=== PATIENT | male | born 1995 | race Caucasian/White ===

== ENCOUNTER 2023-03-04 09:35 | Inpatient (IN) | payer OTHER ==
[2023-03-04 10:21] VITALS: BMI 27.8
[2023-03-04] MEDS ORDERED: IBUPROFEN 600 MG TABLET (FP) PO PRN (10:48)
[2023-03-04] MEDS ORDERED: guaiFENesin 600 MG TABLET.ER (FP) PO PRN (10:48)
[2023-03-04] MEDS ORDERED: NALOXONE HCL 0.4 MG/ML VIAL IM PRN (10:48)
[2023-03-04] MEDS ORDERED: IBUPROFEN 400 MG TABLET (FP) PO PRN (10:48)
[2023-03-04] MEDS ORDERED: BISMUTH SUBSALICYLATE 262 MG/15 ML BTL PO PRN (10:48)
[2023-03-04] MEDS ORDERED: BENZONATATE 200 MG CAPSULE PO PRN (10:48)
[2023-03-04] MEDS ORDERED: ONDANSETRON *ODT* 4 MG TABLET SL PRN (10:48)
[2023-03-04] MEDS ORDERED: ACETAMINOPHEN 325 MG TABLET (FP) PO PRN (10:48)
[2023-03-04] MEDS ORDERED: POLYETHYLENE GLYCOL (HEALTHYLAX) 3350 17 GM PACKET PO PRN (10:48)
[2023-03-04] MEDS ORDERED: LOPERAMIDE HCL 2 MG CAPSULE PO PRN (10:48)
[2023-03-04] MEDS ORDERED: MAG HYDROX/AL HYDROX/SIMETH 30 ML UNIT-DOSE CUP PO PRN (10:48)
[2023-03-04] MEDS ORDERED: BENZOCAINE/MENTHOL (CHLORASEPTIC ) LOZENGE MM PRN (10:48)
[2023-03-04] MEDS ORDERED: NALOXONE HCL (KLOXXADO) 8 MG SPRAY NS PRN (10:48)
[2023-03-04] MEDS ORDERED: MAGNESIUM HYDROX 2400MG/30ML ORAL SUSPENSION 30 ML CUP PO PRN (10:48)
[2023-03-04] MEDS ORDERED: methaDONE HCL 10 MG TABLET (FOR DETOX USE ONLY) PO ONE (10:52)
[2023-03-04] MEDS ORDERED: methaDONE HCL 10 MG TABLET (FOR DETOX USE ONLY) ONE (11:20)
[2023-03-04] MEDS: cloNIDine HCL 0.1 MG TABLET PO PRN ×2 (12:07→22:19)
[2023-03-04] MEDS: hydrOXYzine PAMOATE 25 MG CAPSULE (FP) PO PRN (12:07)
[2023-03-04] MEDS ORDERED: diazePAM 5 MG TABLET PO PRN (14:07)
[2023-03-04] MEDS: SERTRALINE HCL 50 MG TABLET (FP) PO SCH (14:38)
[2023-03-04 16:29] LABS: HIV INTERPRETATION NEGATIVE (NEGATIVE)
[2023-03-04] MEDS: THIAMINE HCL 100 MG TABLET (FP) PO SCH (22:18)
[2023-03-04] MEDS: MELATONIN 5 MG TABLETS PO SCH (22:18)
[2023-03-05 08:27] LABS: POTASSIUM 3.5 mmol/L (3.5-5.1)
[2023-03-05 08:29] LABS: CALCIUM 10.2 mg/dL (8.5-10.1)
[2023-03-05 08:30] LABS: ALBUMIN 4.1 g/dl (3.4-5.0); BLOOD UREA NITROGEN 11.2 mg/dL (7-18); HEMATOCRIT 43.3 % (35.4-49); HEMOGLOBIN 14.5 GM/dL (11.7-16.9); MCH 30.6 pg (25.7-33.7); MCHC 33.5 g/dl (32.0-35.9); MEAN CELL VOLUME 91.6 fl (80-96); MEAN PLT VOLUME 8.6 fl (7.5-11.1); PLATELET COUNT 251 10^3/uL (134-434); RBC 4.73 M/mm3 (4.00-5.60); RDW 13.2 % (11.9-15.9); WHITE BLOOD COUNT 5.9 K/mm3 (4.0-10.0)
[2023-03-05 08:33] LABS: CREATININE 0.8 mg/dL (0.55-1.3)
[2023-03-05 08:34] LABS: BILIRUBIN,TOTAL 0.9 mg/dL (0.2-1); TOT PROT 7.7 g/dl (6.4-8.2)
[2023-03-05] MEDS: PRENATAL VITAMINS W/ FOLIC ACID TABLET (FP) PO SCH (10:26)
[2023-03-05] MEDS: SERTRALINE HCL 50 MG TABLET (FP) PO SCH (10:26)
[2023-03-05] MEDS: MELATONIN 5 MG TABLETS PO SCH (22:12)
[2023-03-05] MEDS: THIAMINE HCL 100 MG TABLET (FP) PO SCH (22:12)
[2023-03-06] MEDS ORDERED: methaDONE HCL 10 MG TABLET (FOR DETOX USE ONLY) PO ONE (10:00)
[2023-03-06] MEDS: SERTRALINE HCL 50 MG TABLET (FP) PO SCH (10:11)
[2023-03-06] MEDS: PRENATAL VITAMINS W/ FOLIC ACID TABLET (FP) PO SCH (10:11)
[2023-03-06] MEDS: MELATONIN 5 MG TABLETS PO SCH (22:16)
[2023-03-06] MEDS: THIAMINE HCL 100 MG TABLET (FP) PO SCH (22:16)
[2023-03-07] MEDS: METHOCARBAMOL 500 MG TABLET PO PRN (09:42)
[2023-03-07] MEDS: SERTRALINE HCL 50 MG TABLET (FP) PO SCH (09:42)
[2023-03-07] MEDS: PRENATAL VITAMINS W/ FOLIC ACID TABLET (FP) PO SCH (09:44)
[2023-03-07] MEDS: hydrOXYzine PAMOATE 25 MG CAPSULE (FP) PO PRN ×2 (13:48→22:29)
[2023-03-07] MEDS: THIAMINE HCL 100 MG TABLET (FP) PO SCH (22:29)
[2023-03-07] MEDS: MELATONIN 5 MG TABLETS PO SCH (22:29)
[2023-03-08] MEDS: PRENATAL VITAMINS W/ FOLIC ACID TABLET (FP) PO SCH (09:46)
[2023-03-08] MEDS: METHOCARBAMOL 500 MG TABLET PO PRN ×2 (09:47→17:46)
[2023-03-08] MEDS: SERTRALINE HCL 50 MG TABLET (FP) PO SCH (09:47)
[2023-03-08] MEDS ORDERED: methaDONE HCL 10 MG TABLET (FOR DETOX USE ONLY) PO ONE (10:00)
[2023-03-08] MEDS: hydrOXYzine PAMOATE 25 MG CAPSULE (FP) PO PRN ×2 (17:46→22:40)
[2023-03-08 20:53] VITALS: TEMP 97.7
[2023-03-08] MEDS: MELATONIN 5 MG TABLETS PO SCH (22:40)
[2023-03-08] MEDS: THIAMINE HCL 100 MG TABLET (FP) PO SCH (22:40)
[2023-03-09 09:45] VITALS: BP 146/106; PULSE 79; RESP 18
[2023-03-09] MEDS: SERTRALINE HCL 50 MG TABLET (FP) PO SCH (10:20)
[2023-03-09] MEDS: PRENATAL VITAMINS W/ FOLIC ACID TABLET (FP) PO SCH (10:20)
[2023-03-09] MEDS ORDERED: amLODIPine BESYLATE 5 MG TABLET (FP) PO SCH (11:45)
== END 2023-03-09 11:00 | disposition home or self-care (01) | DRG 773 ==
LOC: YASAS 09:35 → Y6N 11:09
PROVIDERS: ADMIT Allergy & Immunology; ATTEND Surgery
PROC: HZ2ZZZZ Detoxification Services for Substance Abuse Treatment (ICD-10-PCS; principal; 2023-03-04)
DX: F11.23 Opioid dependence with withdrawal (principal); F15.20 Other stimulant dependence, uncomplicated; F12.20 Cannabis dependence, uncomplicated; F33.2 Major depressive disorder, recurrent severe without psychotic features; I10 Essential (primary) hypertension; R76.11 Nonspecific reaction to tuberculin skin test without active tuberculosis; R73.9 Hyperglycemia, unspecified; Z62.810 Personal history of physical and sexual abuse in childhood; Z63.8 Other specified problems related to primary support group; Z88.0 Allergy status to penicillin; Z59.00 Homelessness unspecified; Z56.0 Unemployment, unspecified
CPT/HCPCS: 36415; 80053; 80307; 83036; 85027; 86780; 87389; 87635; 87811; 93005; 93010

== ENCOUNTER 2023-03-17 11:11 | Inpatient (IN) | payer OTHER ==
[2023-03-17 11:34] VITALS: BMI 41.3
[2023-03-17] MEDS ORDERED: ONDANSETRON *ODT* 4 MG TABLET SL PRN (13:06)
[2023-03-17] MEDS ORDERED: LOPERAMIDE HCL 2 MG CAPSULE PO PRN (13:06)
[2023-03-17] MEDS ORDERED: hydrOXYzine PAMOATE 25 MG CAPSULE (FP) PO PRN (13:06)
[2023-03-17] MEDS ORDERED: BISMUTH SUBSALICYLATE 524 MG/30 ML PO PRN (13:06)
[2023-03-17] MEDS ORDERED: BENZONATATE 200 MG CAPSULE PO PRN (13:06)
[2023-03-17] MEDS ORDERED: guaiFENesin 600 MG TABLET.ER (FP) PO PRN (13:06)
[2023-03-17] MEDS ORDERED: ACETAMINOPHEN 325 MG TABLET (FP) PO PRN (13:06)
[2023-03-17] MEDS ORDERED: BENZOCAINE/MENTHOL (CHLORASEPTIC ) LOZENGE MM PRN (13:06)
[2023-03-17] MEDS ORDERED: DICYCLOMINE HCL 10 MG CAPSULE PO PRN (13:06)
[2023-03-17] MEDS ORDERED: IBUPROFEN 400 MG TABLET (FP) PO PRN (13:06)
[2023-03-17] MEDS ORDERED: NALOXONE HCL (KLOXXADO) 8 MG SPRAY NS PRN (13:06)
[2023-03-17] MEDS ORDERED: MAG HYDROX/AL HYDROX/SIMETH 30 ML UNIT-DOSE CUP PO PRN (13:06)
[2023-03-17] MEDS ORDERED: POLYETHYLENE GLYCOL (HEALTHYLAX) 3350 17 GM PACKET PO PRN (13:06)
[2023-03-17] MEDS ORDERED: MAGNESIUM HYDROX 2400MG/30ML ORAL SUSPENSION 30 ML CUP PO PRN (13:06)
[2023-03-17] MEDS ORDERED: IBUPROFEN 600 MG TABLET (FP) PO PRN (13:06)
[2023-03-17] MEDS ORDERED: NALOXONE HCL 0.4 MG/ML VIAL IM PRN (13:06)
[2023-03-17] MEDS ORDERED: diazePAM 5 MG TABLET PO PRN (13:10)
[2023-03-17] MEDS: amLODIPine BESYLATE 5 MG TABLET (FP) PO SCH (13:57)
[2023-03-17] MEDS: SERTRALINE HCL 50 MG TABLET (FP) PO SCH (15:05)
[2023-03-17] MEDS: diazePAM 5 MG TABLET PO SCH ×2 (17:14→22:11)
[2023-03-17] MEDS: MELATONIN 5 MG TABLETS PO SCH (22:10)
[2023-03-17] MEDS: THIAMINE HCL 100 MG TABLET (FP) PO SCH (22:11)
[2023-03-17] MEDS: METHOCARBAMOL 500 MG TABLET PO PRN (22:11)
[2023-03-18] MEDS: diazePAM 5 MG TABLET PO SCH ×4 (05:53→22:04)
[2023-03-18] MEDS: PRENATAL VITAMINS W/ FOLIC ACID TABLET (FP) PO SCH (10:07)
[2023-03-18] MEDS: SERTRALINE HCL 50 MG TABLET (FP) PO SCH (10:08)
[2023-03-18] MEDS: METHOCARBAMOL 500 MG TABLET PO PRN (10:08)
[2023-03-18] MEDS: amLODIPine BESYLATE 5 MG TABLET (FP) PO SCH (10:08)
[2023-03-18 11:39] LABS: CHLORIDE 106 mmol/L (98-107); POTASSIUM 4.1 mmol/L (3.5-5.1); SODIUM 140 mmol/L (136-145)
[2023-03-18 11:43] LABS: ANION GAP 7 mmol/L (4-13); BLOOD UREA NITROGEN 12.7 mg/dL (7-18); CO2 27 mmol/L (21-32)
[2023-03-18 11:46] LABS: CREATININE 0.7 mg/dL (0.55-1.3); SGOT/AST 61 U/L (15-37); SGPT/ALT 102 U/L (13-61)
[2023-03-18 11:48] LABS: BILIRUBIN,TOTAL 0.8 mg/dL (0.2-1); GLUCOSE,RANDOM 96 mg/dL (74-106); TOT PROT 6.6 g/dl (6.4-8.2)
[2023-03-18 11:49] LABS: ALK PHOS 99 U/L (45-117)
[2023-03-18 11:53] LABS: ALBUMIN 3.2 g/dl (3.4-5.0)
[2023-03-18 12:15] LABS: HEMATOCRIT 40.7 % (35.4-49); HEMOGLOBIN 14.1 GM/dL (11.7-16.9); MCH 31.4 pg (25.7-33.7); MCHC 34.6 g/dl (32.0-35.9); MEAN CELL VOLUME 90.7 fl (80-96); MEAN PLT VOLUME 8.9 fl (7.5-11.1); PLATELET COUNT 244 10^3/uL (134-434); RBC 4.49 M/mm3 (4.00-5.60); RDW 13.7 % (11.9-15.9)
[2023-03-18] MEDS: MELATONIN 5 MG TABLETS PO SCH (22:02)
[2023-03-18] MEDS: THIAMINE HCL 100 MG TABLET (FP) PO SCH (22:02)
[2023-03-19] MEDS: diazePAM 5 MG TABLET PO SCH ×3 (05:16→22:08)
[2023-03-19] MEDS ORDERED: diazePAM 5 MG TABLET PO PRN (09:42)
[2023-03-19] MEDS: amLODIPine BESYLATE 5 MG TABLET (FP) PO SCH (10:19)
[2023-03-19] MEDS: PRENATAL VITAMINS W/ FOLIC ACID TABLET (FP) PO SCH (10:19)
[2023-03-19] MEDS: SERTRALINE HCL 50 MG TABLET (FP) PO SCH (10:19)
[2023-03-19] MEDS: METHOCARBAMOL 500 MG TABLET PO PRN ×2 (10:19→17:27)
[2023-03-19] MEDS: MELATONIN 5 MG TABLETS PO SCH (22:08)
[2023-03-19] MEDS: THIAMINE HCL 100 MG TABLET (FP) PO SCH (22:08)
[2023-03-20] MEDS ORDERED: diazePAM 5 MG TABLET PO SCH (06:00)
[2023-03-20 09:30] VITALS: BP 126/65; PULSE 67; RESP 16; TEMP 97.1
[2023-03-20] MEDS: PRENATAL VITAMINS W/ FOLIC ACID TABLET (FP) PO SCH (10:19)
[2023-03-20] MEDS: amLODIPine BESYLATE 5 MG TABLET (FP) PO SCH (10:20)
[2023-03-20] MEDS: SERTRALINE HCL 50 MG TABLET (FP) PO SCH (10:20)
[2023-03-21] MEDS ORDERED: diazePAM 5 MG TABLET PO ONE (06:00)
== END 2023-03-20 11:35 | disposition home or self-care (01) | DRG 773 ==
LOC: YASAS 11:11 → Y6N 13:04
PROVIDERS: ADMIT Allergy & Immunology; ATTEND Allergy & Immunology
PROC: HZ2ZZZZ Detoxification Services for Substance Abuse Treatment (ICD-10-PCS; principal; 2023-03-17)
DX: F10.230 Alcohol dependence with withdrawal, uncomplicated (principal); F11.20 Opioid dependence, uncomplicated; F14.20 Cocaine dependence, uncomplicated; F15.20 Other stimulant dependence, uncomplicated; F12.20 Cannabis dependence, uncomplicated; F33.2 Major depressive disorder, recurrent severe without psychotic features; I10 Essential (primary) hypertension; Z62.810 Personal history of physical and sexual abuse in childhood; Z87.891 Personal history of nicotine dependence; Z56.0 Unemployment, unspecified; Z59.00 Homelessness unspecified; Z88.0 Allergy status to penicillin
CPT/HCPCS: 36415; 80053; 80307; 85027; 86780; 87635; 87811; 93005; 93010